=== PATIENT | male | born 1985 | race Hispanic/Latino ===

== ENCOUNTER 2022-07-03 09:45 | Outpatient (CLI) | payer OTHER, SELFPAY ==
[2022-07-03 10:11] LABS: Basophils Absolute Auto 0.1 K/mm3 (0.0-0.1); Basophils Percent Auto 1.2 % (0.2-1.2); Eosinophils Absolute Auto 0.1 K/mm3 (0-0.3); Eosinophils Percent Auto 1.6 % (0-4.4); Hematocrit 45.8 % (42.0-52.0); Hemoglobin 15.8 g/dL (14.0-18.0); Immature Granulocyte Absolute 0.01 K/mm3 (0.00-0.031); Immature Granulocyte Percent A 0.1 % (0-0.5); Lymphocytes Absolute Auto 2.13 K/mm3 (0.9-3.2); Mean Corpuscular HGB Conc 34.5 g/dl (32-36); Mean Corpuscular Hemoglobin 31.3 pg (26-34); Mean Corpuscular Volume 90.7 fl (80-100); Mean Platelet Volume 9.6 fl (7.4-10.4); Monocytes Absolute Auto 0.5 K/mm3 (0.1-0.6); Monocytes Percent Auto 6.6 % (2.6-8.5); Neutrophils Absolute Auto 4.8 K/mm3 (1.3-6.7); Neutrophils Percent Auto 62.5 % (45.5-73.1); Platelet Count Result 260 k/mm3 (150-375); Red Blood Count 5.05 M/mm3 (4.6-6.20); Red Cell Distribution Width 12.7 % (11.5-14.5); White Blood Count 7.6 K/mm3 (4.5-10.0)
[2022-07-03 11:38] LABS: Free T4 Free Thyroxine 1.41 ng/mL (0.78-2.19)
[2022-07-07 04:06] LABS: FSH 30.7 mIU/mL (1.6-8.0); LH 15.7 mIU/mL (1.5-9.3); Prolactin 6.5 ng/mL (***)
[2022-07-07 10:55] LABS: Testosterone Free 42.7 pg/mL (46.0-224.0); Testosterone Total 402 ng/dL (250-1100)
[2022-07-12 21:29] LABS: PSA, Free 0.19 ng/mL; PSA, Total 0.4 ng/mL (<=4.0)
== END 2022-07-03 09:46 | disposition home or self-care (01) ==
LOC: ANHLAB 09:47
PROVIDERS: Visit Provider Internal Medicine
DX: N46.01 Organic azoospermia (principal)
CPT/HCPCS: 36415; 82024; 82533; 83001; 83002; 84146; 84153; 84154; 84402; 84403; 84439; 84443; 85025

== ENCOUNTER 2022-07-19 09:36 | Outpatient (CLI) | payer OTHER, SELFPAY ==
[2022-07-19 11:23] LABS: Prostate Specific Antigen 0.6 ng/mL (< OR = 4.0)
[2022-07-24 08:44] LABS: Testosterone Free 51.6 pg/mL (46.0-224.0); Testosterone Total 391 ng/dL (250-1100)
== END 2022-07-19 09:37 | disposition home or self-care (01) ==
LOC: ANHLAB 09:37
PROVIDERS: Visit Provider Internal Medicine
DX: N46.01 Organic azoospermia (principal); F32.A Depression, unspecified
CPT/HCPCS: 36415; 84153; 84402; 84403; G0103

== ENCOUNTER 2022-11-11 11:52 | Outpatient (CLI) | payer OTHER, SELFPAY ==
[2022-11-14 11:09] LABS: Testosterone Total 243 ng/dL (250-1100)
[2022-11-14 19:31] LABS: Testosterone Free 30.8 pg/mL (46.0-224.0)
== END 2022-11-11 11:53 | disposition home or self-care (01) ==
LOC: ANHLAB 11:53
PROVIDERS: Visit Provider Internal Medicine
DX: N46.01 Organic azoospermia (principal); F32.A Depression, unspecified; R53.83 Other fatigue
CPT/HCPCS: 36415; 84402; 84403

== ENCOUNTER 2023-12-05 12:58 | Emergency (ER) | payer OTHER, SELFPAY ==
--- NOTE | ~2023-12-05 | XR_ITS ---
Clinical Indication: Cough PA and lateral views of the chest: Comparison: 10/25/2021 Findings: The lungs are clear, without evidence of focal consolidation or pleural effusion. Cardiome diastinal silhouette is within normal limits. Possible expansile lesion of the left fourth rib. Impression: Possible expansile lesion of the left fourth rib. Chest CT advised to further evaluate. Clear lungs. Reviewed, dictated and finalized at location . Impression: Possible expansile lesion of the left fourth rib. Chest CT advised to further e valuate. Clear lungs.
[2023-12-05 13:09] VITALS: BP 149/91; PULSE 93; RESP 16; TEMP 36.8; O2SAT 99
--- NOTE | 2023-12-05 13:14 | ED.URI ---
HPI - URI/Sore Throat General Chief Complaint: Upper Respiratory Infection Stated Complaint: cough Time Seen by Provider: 12/05/23 13:15 Source: patient Mode of arrival: ambulatory Limitations: no limitations History of Present Illness HPI Narrative: 38 yo M presents with dry cough, phlegm in throat causing irritation for over a month. Notices cough more at night and after eating and drinking phlegm irritates throat. Takes claritin daily. Tried robitussin but does not want to keep taking if not helping. No CP or SOB. doesn't feel sick . No other symptoms today. All systems reviewed and negative except as noted above. Related Data Home Medications Medication Instructions Recorded Confirmed bupropion HCl 150 mg 24 hr tablet, 150 mg PO DAILY 12/05/23 12/05/23 extended release finasteride 1 mg tablet 1 mg PO DAILY 12/05/23 12/05/23 Allergies Allergy/AdvReac Type Severity Reaction Status Date / Time No Known Allergies Allergy Verified 12/05/23 13:03 Review of Systems Review of Systems: CONSTITUTIONAL: Denies fever, chills, or sweats. EYES: Denies visual changes, redness, or discharge. ENT: Denies rhinorrhea, congestion, sore throat, or otalgia. reports phlegm in throat CARDIOVASCULAR: Denies chest pain, palpitations, or edema. RESPIRATORY: Reports cough. Denies dyspnea. GASTROINTESTINAL: Denies abdominal pain, nausea, vomiting, or diarrhea. GENITOURINARY: Denies dysuria or hematuria. SKIN: Denies rash or itching. MUSCULOSKELETAL: Denies back pain, joint pain, or myalgia. NEUROLOGIC: Denies headache, numbness, or weakness. PSYCHIATRIC: Denies anxiety or depression. All other systems reviewed are negative, except as documented in HPI. [facility] Past Medical History Medical History Azoospermia Depression Fatigue Hypogonadism Infertility Social History Social History Smoking status: Never smoker Alcohol intake: current Substance use: never Gender identity (if verbalized by the patient): Male Comments At time of signature, agree with nursing past medical, surgical, social and family history. There is no relevant family history pertinent to the presenting complaint. Exam Narrative: GENERAL: This is a well-nourished, well-developed patient, in no apparent distress. HEAD: normocephalic, atraumatic. EYES: PERRL. Sclera clear/white. Vision is grossly intact. EARS: External ears normal, auditory canals clear and without drainage, TMs normal without perforation. Hearing grossly intact. NOSE: External nose normal with no obvious nasal discharge, nares without redness, no rhinorrhea. THROAT: Mucous membranes moist, postnasal drainage without erythema or swelling NECK: Neck supple, non-tender without lymphadenopathy, masses or thyromegaly. CARDIOVASCULAR: Regular rate and rhythm without murmurs, gallops, or rubs. RESPIRATORY: Clear to auscultation. Breath sounds equal bilaterally. No wheezes, rales, or rhonchi. \ SKIN: warm, Dry, intact with no suspicious lesions or rash, good texture and turgor. NEURO: awake, alert, and oriented to person, place and time. There were no obvious focal neurologic abnormalities. EXTREMITIES: No joint tenderness, effusion, or edema noted. Course Course Level of Care: Express Care Visit Vital Signs Vital signs: Vital Signs Temperature 36.8 C 12/05/23 13:09 Pulse Rate 93 12/05/23 13:09 Respiratory Rate 16 12/05/23 13:09 Blood Pressure 149/91 H 12/05/23 13:09 Pulse Oximetry 99 12/05/23 13:09 Oxygen Delivery Room Air 12/05/23 13:09 Temperature 36.8 C 12/05/23 13:09 Pulse Rate 93 12/05/23 13:09 Respiratory Rate 16 12/05/23 13:09 Blood Pressure 149/91 H 12/05/23 13:09 Pulse Oximetry 99 12/05/23 13:09 Oxygen Delivery Room Air 12/05/23 13:09 reviewed MDM - URI/Sore Throat MDM Narrative Medical decision june
== END 2023-12-05 13:47 | disposition home or self-care (01) ==
PROVIDERS: Emergency Provider Nurse Practitioner Family
DX: R05.9 Cough, unspecified (principal); R09.82 Postnasal drip; R91.8 Other nonspecific abnormal finding of lung field; F32.A Depression, unspecified
CPT/HCPCS: 71046; 99213; G0463